=== PATIENT | female | born 1970 | race Caucasian/White ===

== ENCOUNTER 2021-08-20 13:40 | Emergency (ER) | payer MEDICAID ==
[~2021-08-20] VITALS: Ht 152.4 cm; Wt 72.2 kg
[2021-08-20 13:45] VITALS: BP 116/50
--- NOTE | 2021-08-20 13:57 | NUR ---
PATIENT AMBULATED TO BED 10.
--- NOTE | 2021-08-20 14:04 | NUR ---
51 Y/O F C/O EPIGASTRIC PAIN, NAUSEA X 1 WEEK AND C/O BLACK LOOSE STOOL X 5 DAYS. ON BLOOD THINNER 12 YEARS. PT STATES 6/10 STABBING PAIN. ABD LARGE, ROUNDED. PT TOOK NORCO WITH SOME RELIEF. PT REPORTS VOMITING BILE MEDHX: HYSTERECTOMY, NEUROPATHY, LYMPHOMA, TUMOR, RT BREAST REMOVAL, DVT, PE ALLERGIES: VICODIN HOME MEDS: WARFARIN, 5MG, LYRICA
--- NOTE | 2021-08-20 14:16 | NUR ---
DR MAURICIO AT BEDSIDE EXAMINING PT
[2021-08-20] MEDS ORDERED: MORPHINE SULFATE 4 MG/ML SYR IVP ONE ×2 (14:20→16:50)
[2021-08-20] MEDS ORDERED: ONDANSETRON 4 MG/2 ML VIAL IVP ONE (14:20)
--- NOTE | 2021-08-20 14:58 | NUR ---
BLOOD WORK COLLECTED AND WALKED TO LAB
[2021-08-20 15:09] LABS: BASOPHILS # (AUTO) 0.1 K/uL (0.00-0.22); BASOPHILS % (AUTO) 1.7 % (0.0-2.0); EOSINOPHILS # (AUTO) 0.3 K/uL (0-0.4); EOSINOPHILS % (AUTO) 5.8 % (0.0-4.0); HEMATOCRIT 39.2 % (36-48); HEMOGLOBIN 13.1 g/dL (12.0-16.0); LYMPHOCYTES # (AUTO) 1.1 K/uL (2.5-16.5); MEAN CORPUSCULAR HEMOGLOBIN 30 pg (27-31); MEAN CORPUSCULAR HGB CONC 33 g/dL (33-37); MEAN CORPUSCULAR VOLUME 89.5 fL (80-94); MONOCYTES # (AUTO) 0.4 K/uL (0.8-1.0); MONOCYTES % (AUTO) 8.3 % (1.7-9.3); NEUTROPHILS # (AUTO) 2.8 K/uL (1.8-7.7); NEUTROPHILS % (AUTO) 60.2 % (42.2-75.2); PLATELET COUNT (AUTO) 268 K/uL (140-450); RED BLOOD CELL COUNT(AUTO) 4.39 MIL/uL (4.20-5.40); RED CELL DISTRIBUTION WIDTH 14.1 % (11.6-13.7); WHITE BLOOD COUNT (AUTO) 4.7 K/uL (4.8-10.8)
[2021-08-20 16:45] LABS: ALBUMIN 3.5 g/dL (3.4-5.0); ANION GAP 11.3 (8-16); CARBON DIOXIDE 28.1 mmol/L (21-32); CREATININE 0.7 mg/dL (0.6-1.3); POTASSIUM 4.4 mmol/L (3.5-5.1); TOTAL BILIRUBIN 0.4 mg/dL (0.0-1.0)
[2021-08-20 16:45] LABS: APPEARANCE,URINE CLEAR (CLEAR); BILIRUBIN,URINE NEGATIVE (NEGATIVE); BLOOD, URINE NEGATIVE (NEGATIVE); COLOR,URINE YELLOW (YELLOW); LEUKOCYTE ESTERASE ,URINE NEGATIVE (NEGATIVE); NITRITE, URINE NEGATIVE (NEGATIVE); UGLUCOSE NEGATIVE (NEGATIVE)
--- NOTE | 2021-08-20 17:38 | NUR ---
PT TAKEN TO CT SCAN VIA B[facility]
--- NOTE | 2021-08-20 17:55 | NUR ---
PT RETURNED FROM CT
--- NOTE | 2021-08-20 19:19 | NUR ---
RECEIVED REPORT FROM GILLIAN TRAMMELL AND MARIANA TRAMMELL FOR CONTINUATION OF CARE.
--- NOTE | 2021-08-20 19:19 | NUR ---
Pt report given to HAZEL RN. Transfer of care at this time.
--- NOTE | 2021-08-20 19:38 | NUR ---
PATIENT CAME OUT OF THE ROOM AND WANTS TO LEAVE AND PATIENT WANTS PAIN MEDICATION. PATIENT CLAIMS TAKING OUT OWN IV FOR BEING IMPATIENT. WAYNE MADE AWARE.
[2021-08-20] MEDS ORDERED: HYDR-5080 PO (19:43)
[2021-08-20] MEDS ORDERED: ONDA-188 PO (19:43)
[2021-08-20] MEDS ORDERED: FAMO-90 PO (19:43)
[2021-08-20 19:55] VITALS: BP 112/71
--- NOTE | 2021-08-20 19:56 | NUR ---
Patient discharged with v/s stable. Written and verbal after care instructions given on abdominal pain and explained. Patient alert, oriented and verbalized understanding of instructions. Ambulatory with steady gait. All questions addressed prior to discharge. ID band removed. Patient advised to follow up with PMD. Rx of famotidine, hydrocodone, and ondansetron given.
--- NOTE | 2021-08-20 19:56 | NUR ---
The patient's care was reviewed and supervised by Natalya Rivera RN, RN.
== END 2021-08-20 19:56 | disposition home or self-care (01) ==
LOC: MED 13:40
DX: R10.9 Unspecified abdominal pain (principal); R11.2 Nausea with vomiting, unspecified; R14.0 Abdominal distension (gaseous); Z88.6 Allergy status to analgesic agent; Z88.5 Allergy status to narcotic agent
CPT/HCPCS: 36415; 74178; 80053; 81003; 83690; 85025; 96374; 96375; 96376; 99285; J2270; J2405

== ENCOUNTER 2021-08-21 11:09 | Emergency (ER) | payer MEDICAID ==
[~2021-08-21] VITALS: Ht 154.9 cm; Wt 71.2 kg
[~2021-08-21 11:09] MED LIST: FAMO-90 PO; HYDR-5080 PO; ONDA-188 PO
[2021-08-21 11:16] VITALS: BP 107/54
--- NOTE | 2021-08-21 11:21 | NUR ---
PT AMBULATED TO ER BED 8 WITH A STEADY GAIT.
--- NOTE | 2021-08-21 11:23 | NUR ---
51 Y/O FEMALE BIB SELF FOR ABDOMINAL PAIN. PAIN CURRENTLY IS RATED 7/10, SHARP TYPE OF PAIN. PT WAS SEEN HERE IN ER YESTERDAY FOR EPIGASTRIC PAIN X 1 WEEK. PT. HAS CONTINUED TO HAVE PAIN AND WAS NOT ABLE TO SUPERVISOR HOT DIP PLATING PAIN MEDICATION FROM PHARMACY YESTERDAY. PMH: GBS, GI ULCERS, NEUROPATHY MEDS: LYRICA, WARFARIN ALLERGY: ACETAMINOPHEN, HYDROCODONE
--- NOTE | 2021-08-21 11:25 | NUR ---
dr. castaneda bedside evaluating pt
[2021-08-21] MEDS ORDERED: DICYCLOMINE HCL LIQUID 20 MG, ALUMINUM HYD/MAG/SIMETHICONE 30 ML, LIDOCAINE VISCOUS 2% ... PO ONE ×6 (11:30→11:50)
[2021-08-21] MEDS ORDERED: ALUMINUM HYD/MAG/SIMETHICONE 30 ML UDC ONE ×2 (11:34→12:01)
[2021-08-21] MEDS ORDERED: DICYCLOMINE HCL LIQUID 10 MG/5 ML UDC ONE ×2 (11:34→12:01)
--- NOTE | 2021-08-21 11:42 | NUR ---
PT ACTIVELY VOMITING AT BEDSIDE UNABLE TO TOLERATE MEDICATION. MADE AWARE.
[2021-08-21] MEDS ORDERED: ONDANSETRON 4 MG ODT PO ONE (11:50)
[2021-08-21] MEDS ORDERED: KETOROLAC 60 MG/2 ML VIAL IM ONE (11:50)
--- NOTE | 2021-08-21 12:10 | NUR ---
PT REFUSED PAIN MEDICATION AND SECOND GI COCKTAIL
[2021-08-21 12:23] VITALS: BP 107/54
--- NOTE | 2021-08-21 12:25 | NUR ---
Patient discharged with v/s stable. Written and verbal after care instructions given and explained. Patient verbalized understanding. Ambulatory with steady gait. All questions addressed prior to discharge. Advised to follow up with PMD.
== END 2021-08-21 12:23 | disposition home or self-care (01) ==
LOC: MED 11:09
DX: R10.13 Epigastric pain (principal); R11.2 Nausea with vomiting, unspecified; K92.1 Melena; Z88.5 Allergy status to narcotic agent; Z85.9 Personal history of malignant neoplasm, unspecified; Z88.6 Allergy status to analgesic agent; Z98.890 Other specified postprocedural states; Z90.710 Acquired absence of both cervix and uterus; Z86.718 Personal history of other venous thrombosis and embolism; Z79.899 Other long term (current) drug therapy
CPT/HCPCS: 99283; Q0162; J1885